=== PATIENT | female | born 2000 | race Caucasian/White ===

== ENCOUNTER 2020-09-16 12:21 | Emergency (ER) | payer OTHER, SELFPAY ==
[2020-09-16 13:05] VITALS: BP 114/76; PULSE 90; RESP 18; TEMP 36.6; O2SAT 98; BMI 21.1
--- NOTE | 2020-09-16 13:18 | CT_ITS ---
EXAMINATION: CT ABDOMEN AND PELVIS WITHOUT CONTRAST CLINICAL INFORMATION: Abdominal pain after IUD placement. Concern for perforation. COMPARISON: None TECHNIQUE: Multidetector volumetric imaging was performed from the superior aspect of the liver through the pubic symphysis. Sagittal and coronal reformatted images were obtained on the technologist's workstation. This CT examination was performed using dose optimization techniques as appropriate, variously including the following: *Automated exposure control *Adjustment of mA and/or kV according to patient size (this includes techniques or standardized protocols for targeted exams where dose is matched to indication/reason for exam; i.e. extremities or head) *Use of iterative reconstruction technique DLP: 380 mGy-cm FINDINGS: LUNG BASES: The visualized lung bases are unremarkable. LIVER, GALLBLADDER, AND BILIARY TREE: The liver is normal in size, shape, and attenuation. No focal hepatic lesion or biliary ductal dilatation is present. The gallbladder is unremarkable with no evidence of radiopaque gallstones, gallbladder wall thickening, or obvious pericholecystic inflammatory changes. PANCREAS: Unremarkable. SPLEEN: Unremarkable. ADRENAL GLANDS: Unremarkable. KIDNEYS AND URETERS: The kidneys are normal in size, shape, and attenuation. No hydronephrosis, hydroureter, or calculi seen. No perinephric stranding. BLADDER: Unremarkable. GASTROINTESTINAL TRACT: The small and large bowel are unremarkable. The appendix is unremarkable. ABDOMINAL WALL: No significant hernia is appreciated. LYMPH NODES: Normal. VASCULAR: Unremarkable. PELVIC VISCERA: Anteverted uterus. IUD in place in typical position. No adnexal mass. There is no free air identified. OSSEOUS STRUCTURES: Scoliotic curvature of the spine. CT/CT abdomen pelvis wo con IMPRESSION: IUD in place in the uterus in typical positioning. No evidence of perforation. No acute finding of the abdomen or pelvis.
--- NOTE | 2020-09-16 13:28 | ED.ABDPAIN ---
HPI - Abdominal Pain General Chief Complaint: Abdominal Pain Stated Complaint: abd pain Time Seen by Provider: 09/16/20 13:10 Source: patient Mode of arrival: ambulatory Limitations: no limitations History of Present Illness HPI narrative: 19 y/o female presenting with acute onset of abdominal pain after IUD placement at 9am today. She states she had immediate pain and nausea. She was given water and discharged home. She continued to have severe pain and had increase in vaginal bleeding. She took ibuprofen and naproxen with worsening pain and bleeding. She states the pain started in her uterus and now has migrated up to her RUQ. She has had no vomiting, diarrhea, fever, or vaginal discharge. MD elicited complaint: abdominal pain Related Data Previous Rx's Medication Instructions Recorded hydrocodone-acetaminophen [[place]] 1 tab PO Q8H PRN #5 tab 09/16/20 ondansetron HCl [Zofran] 4 mg PO Q8H PRN #10 tab 09/16/20 Allergies Allergy/AdvReac Type Severity Reaction Status Date / Time nut - unspecified [nut] Allergy Unknown UNKNOWN Unverified 07/21/20 16:47 FRUIT Allergy Unknown UNKNOWN Uncoded 07/21/20 16:47 fruits Allergy Unknown hives Uncoded 07/29/17 00:00 Review of Systems Review of Systems Constitutional: No Fever, No Chills ENT/Mouth: No sore throat, No Rhinorrhea, No Swallowing Difficulty Eyes: No Eye Pain, No Swelling, No Redness Cardiovascular: No Chest Pain, No SOB, No Orthopnea, No Edema Respiratory: No Cough, No Sputum, No Wheezing, No dyspnea Gastrointestinal: + Nausea, No Vomiting, No Diarrhea, + abdominal Pain, No Hematochezia, No Melena Genitourinary: No Dysuria, No Urinary Frequency, No Hematuria, +vaginal bleeding Musculoskeletal: No joint pain, No Myalgias Skin: No Skin Lesions, No rash Neuro: + Headache Psych: + Anxiety/Panic, No Depression Physical Exam Vital Signs: Vital Signs: Last Vital Signs Temp 98 F 09/16/20 14:00 Pulse 90 09/16/20 14:00 Resp 18 09/16/20 14:00 BP 112/64 09/16/20 14:00 Pulse Ox 98 09/16/20 14:00 Body Mass Index 21.1 Appearance: Alert. Oriented X3. Appears in pain Eyes: Pupils equal, round and reactive to light. ENT: Pharynx normal. Neck: Normal inspection. Neck supple. CVS: Normal heart rate and rhythm. Pulses normal. Respiratory: No respiratory distress. Breath sounds normal. Abdomen: Soft and nontender. +BS x4 Skin: Skin warm and dry. Normal skin color. Normal skin turgor. No rashes. Extremities: No lower extremity edema. Neuro: Oriented X 3. No motor deficit. No sensory deficit. Course Course Course Narrative: 19 y/o female here with severe pain s/p IUD placement. Need to r/o perforation - will get CT scan. Antiemetics and pain meds ordered. Reevaluation(s) Reevaluation #1: CT scan showed IUD in adequate position within the uterus. No acute abdnomalities. On re-evaluation patient's pain is improving. She is stable for discharge home. She will f/u with her Doctor on Saturday. MDM - Abdominal Pain Lab Data Result diagrams: 09/16/20 14:23 09/16/20 14:23 Labs: Lab Results 09/16/20 09/16/20 09/16/20 Range/Units 14:23 14:23 14:23 WBC 9.3 (4.8-10.8) X10*3/uL RBC 4.72 (4.20-5.50) X10*6/uL Hgb 14.8 (12.0-16.0) g/dl Hct 44.0 (37-47) % MCV 93.2 (80-98) fL MCH 31.4 (27.0-33.0) pg MCHC 33.6 (31.0-35.0) g/dl RDW 11.4 (11.0-16.0) % Plt Count 187 (160-400) X10*3/uL MPV Not Reportable Immature Gran % (Auto) 0.2 (0.0-0.4) % Neut % (Auto) 84.7 H (45-73) % Lymph % (Auto) 11.0 L (20-40) % [place] % (Auto) 3.5 (2-11) % Eos % (Auto) 0.3 (0-4) % Baso % (Auto) 0.3 (0-2) % Lymph # (Auto) 1.0 L (1.2-4.9) X10*3/uL [place] # (Auto) 0.3 (0.1-1.2) X10*3/uL Eos # (Auto) 0.0 (0.0-0.4) X10*3/uL Baso # (Auto) 0.0 (0.0-0.2) X10*3/uL Abs Immat Gran (auto) 0.02 (0.00-0.03) X10*3/uL Absolute Neuts (auto) 7.9 (2.0-8.3) X10*3/uL Absolute Nucleated RBC 0.000 (0.0-0.012) X10*3/uL Nucleated RBC % (auto) 0.0 (0.0-0.2) /100WBC Sodium 136 (135-145) mmol/L Potassium 4.8 (3.3-5.1) mmol/l Chloride 102 (96-108) mmol/L Carbon Dioxide 25 (22-29) mmol/L Anion Gap 14 (12-20) BUN 9 (9-16) mg/dL Creatinine 0.77 (0.5-1.4) mg/dL Estim Creat Clear Calc 100.6 Estimated GFR > 60 Random Glucose 94 (60-115) mg/dL Calcium 9.4 (8.4-10.2) mg/dL Magnesium 2.4 (1.6-2.6) mg/dL Total Bilirubin 0.4 (0.0-1.0) mg/dL Direct Bilirubin 0.2 (0.0-0.5) mg/dL AST 20 (5-31) U/L ALT 11 (0-31) U/L Alkaline Phosphatase 66 (39-117) U/L Total Protein 7.8 (6.5-8.0) g/dL Albumin 4.6 (3.5-5.0) g/dL Lipase 7 L (8-78) U/L Beta HCG, Quant < 2 mIU/mL Urine Color YELLOW Urine Appearance HAZY Urine pH 6.0 (5.0-8.0) Ur Specific [place] 1.025 (1.005-1.025) Urine Protein NEG (NEG-TRACE) MG/DL Urine Glucose (UA) NEG (NEG) MG/DL Urine Ketones NEG (NEG) MG/DL Urine Blood 2+ H (NEG) Urine Nitrite NEG (NEG) Ur Leukocyte Esterase TRACE H (NEG) Urine RBC 5-9 H (0) /HPF Urine WBC 1-4 (0-4) /HPF Ur Squamous Epith Cells TRACE /LPF Urine Bacteria NONE /LPF Urine Mucus 2+ /LPF Urine Test NEGATIVE (NEGATIVE) Critical Care Time Critical Care Time Critical Care Time: No Discharge Plan Discharge Clinical Impression: IUD complication Qualifiers: Device complication type: unspecified Encounter type: initial encounter Qualified Code(s): T83.9XXA - Unspecified complication of genitourinary prosthetic device, implant and graft, initial encounter Patient Disposition: Home, Self-Care Instructions: Normal Exam (ED) Additional Instructions: Your CT scan today showed IUD was in the correct position within your uterus. Expect to have some cramping and bleeding for the next 24-48 hours. Follow up with your doctor on Saturday. If you have worsening pain call 911 or come back to the ER for further evaluation. Prescriptions: New ondansetron HCl [Zofran] 4 mg tablet 4 mg PO Q8H PRN (Reason: nausea and vomiting) Qty: 10 RF: 0 hydrocodone-acetaminophen [[place]] 5-325 mg tablet 1 tab PO Q8H PRN (Reason: pain) Qty: 5 RF: 0 PMFSH Past Medical History Attestation statement: The following information was validated with the patient. Social History Social History Alcohol intake: current Alcohol intake frequency: holidays/special occasions only Smoking Status: Never smoker Advance Directives: Yes Advance Directives Information Provided: No Advance Directives on File: No
[2020-09-16 14:00] VITALS: BP 112/64; PULSE 90; RESP 18; TEMP 36.6; O2SAT 98
[2020-09-16] MEDS: oxyCODONE HCl Immed Release 5 MG TABLET PO (14:14)
[2020-09-16 14:31] LABS: MANUAL DIFF FLAG NO
[2020-09-16 14:34] LABS: Basophils Percent Auto 0.3 % (0-2); Eosinophils Percent Auto 0.3 % (0-4); Hemoglobin 14.8 g/dl (12.0-16.0); Imm Gran Abs Auto 0.02 X10*3/uL (0.00-0.03); Imm Gran Pct Auto 0.2 % (0.0-0.4); Mean Corpuscular HGB Conc 33.6 g/dl (31.0-35.0); Mean Corpuscular Hemoglobin 31.4 pg (27.0-33.0); Mean Corpuscular Volume 93.2 fL (80-98); Monocytes Absolute Auto 0.3 X10*3/uL (0.1-1.2); Monocytes Percent Auto 3.5 % (2-11); Neutrophils Absolute Auto 7.9 X10*3/uL (2.0-8.3); Neutrophils Percent Auto 84.7 % (45-73); Platelet Count 187 X10*3/uL (160-400); Red Blood Count 4.72 X10*6/uL (4.20-5.50); Red Cell Distribution Width 11.4 % (11.0-16.0); White Blood Count 9.3 X10*3/uL (4.8-10.8)
[2020-09-16 14:35] LABS: Glucose Urine UA NEG (NEG); Leukocyte Esterase Urine TRACE (NEG); Nitrite Urine NEG (NEG); Specific Gravity - Urine 1.025 (1.005-1.025); Urine Blood 2+ (NEG); Urine Ketones NEG (NEG); Urine Protein NEG (NEG-TRACE)
[2020-09-16 14:37] LABS: Appearance Urine HAZY; Color Urine YELLOW
[2020-09-16 14:38] LABS: UPreg QC Valid YES; Urine Pregnancy NEGATIVE (NEGATIVE)
[2020-09-16 14:45] LABS: Squamous Epithelial Cell Urine TRACE /LPF
[2020-09-16 14:46] LABS: Mucus Urine 2+ /LPF
[2020-09-16 14:58] LABS: Alanine Aminotransferase 11 U/L (0-31); Albumin Level 4.6 g/dL (3.5-5.0); Alkaline Phosphatase 66 U/L (39-117); Anion Gap 14 (12-20); Aspartate Amino Transferase 20 U/L (5-31); Bilirubin Direct 0.2 mg/dL (0.0-0.5); Bilirubin Total 0.4 mg/dL (0.0-1.0); Blood Urea Nitrogen 9 mg/dL (9-16); Calcium 9.4 mg/dL (8.4-10.2); Carbon Dioxide 25 mmol/L (22-29); Chloride 102 mmol/L (96-108); Creatinine Clr Calc Pharmacy 100.6; Estimated Glomerular Filt Rate > 60; Glucose Random 94 mg/dL (60-115); Lipase 7 U/L (8-78); Magnesium 2.4 mg/dL (1.6-2.6); Potassium 4.8 mmol/l (3.3-5.1); Sodium 136 mmol/L (135-145); Total Protein 7.8 g/dL (6.5-8.0)
[2020-09-16 15:01] LABS: HCG Quantitative < 2 mIU/mL
== END 2020-09-16 15:40 | disposition home or self-care (01) ==
PROVIDERS: Physician Assistant; Emergency Provider Emergency Medicine
DX: R10.2 Pelvic and perineal pain (principal); T83.9XXA Unspecified complication of genitourinary prosthetic device, implant and graft, initial encounter; Y76.2 Prosthetic and other implants, materials and accessory obstetric and gynecological devices associated with adverse incidents; Y92.9 Unspecified place or not applicable; Z79.899 Other long term (current) drug therapy
CPT/HCPCS: 36415; 74176; 80048; 80076; 81001; 81025; 83690; 83735; 84702; 85025; 87086; 87147; 99284

== ENCOUNTER 2022-01-18 21:38 | Emergency (ER) | payer OTHER, SELFPAY ==
[2022-01-18 21:41] VITALS: BP 125/77; PULSE 100; RESP 18; TEMP 36.7; O2SAT 100; BMI 20.5
== END 2022-01-19 00:35 | disposition left against medical advice (07) ==
PROVIDERS: Emergency Provider Emergency Medicine
DX: S01.111A Laceration without foreign body of right eyelid and periocular area, initial encounter (principal); W22.8XXA Striking against or struck by other objects, initial encounter; Y93.89 Activity, other specified; Y92.810 Car as the place of occurrence of the external cause; Y99.9 Unspecified external cause status
CPT/HCPCS: 99281; 99282

== ENCOUNTER 2022-03-18 18:51 | Emergency (ER) | payer OTHER, SELFPAY ==
[2022-03-18 19:05] VITALS: BP 133/66; PULSE 85; RESP 18; TEMP 37.4; O2SAT 98; BMI 21.9
[2022-03-18 19:39] LABS: IDNOW Serial# 16C4AD1C; Influenza A Positive (Negative); Influenza B2 Negative (Negative)
[2022-03-18 19:41] LABS: COVID-19 Test Negative (Negative)
== END 2022-03-18 23:12 | disposition left against medical advice (07) ==
PROVIDERS: Emergency Provider Emergency Medicine; PCP Internal Medicine
DX: R50.9 Fever, unspecified (principal); Z20.822 Contact with and (suspected) exposure to COVID-19
CPT/HCPCS: 87502; 87635; 99283

== ENCOUNTER 2022-05-14 09:52 | Outpatient (REF) | payer OTHER, SELFPAY ==
--- NOTE | ~2022-05-14 | XR_ITS ---
EXAMINATION: XR CHEST CLINICAL INFORMATION: Allergic rhinitis. COMPARISON: Chest x-ray 04/13/2019 TECHNIQUE: 2 views of the chest were obtained. FINDINGS: No significant abnormality is noted involving the heart, lungs, mediastinum, bony thorax or soft tissues. XR/XR chest 2V IMPRESSION: Unremarkable examination.
--- NOTE | 2022-05-14 10:01 | ECG_ITS ---
Test Reason : CHEST PAIN Blood Pressure : / mmHG Vent. Rate : 062 BPM Atrial Rate : 062 BPM P-R Int : 120 ms QRS Dur : 084 ms QT Int : 396 ms P-R-T Axes : 017 059 001 degrees QTc Int : 401 ms Normal sinus rhythm Normal ECG When compared with ECG of 13-APR-2019 07:16, No significant change was found Referred By: Jenna Matos Electronically Signed By:KATHERIN JOLLEY MD
[2022-05-14 10:49] LABS: Basophils Absolute Auto 0.1 X10*3/uL (0.0-0.2); Basophils Percent Auto 0.8 % (0-2); Eosinophils Absolute Auto 0.2 X10*3/uL (0.0-0.4); Eosinophils Percent Auto 3.7 % (0-4); Hematocrit 43.7 % (37.0-47.0); Hemoglobin 14.8 g/dl (12.0-16.0); Imm Gran Abs Auto 0.02 X10*3/uL (0.00-0.03); Imm Gran Pct Auto 0.3 % (0.0-0.4); Lymphocytes Absolute Auto 1.4 X10*3/uL (1.2-4.9); Lymphocytes Percent Auto 20.8 % (20-40); MANUAL DIFF FLAG SCAN; Mean Corpuscular HGB Conc 33.9 g/dl (31.0-35.0); Mean Corpuscular Hemoglobin 31.7 pg (27.0-33.0); Mean Corpuscular Volume 93.6 fL (80.0-98.0); Mean Platelet Volume 14.3 fL (9.4-12.3); Monocytes Absolute Auto 0.5 X10*3/uL (0.1-1.2); Monocytes Percent Auto 7.2 % (2-11); Neutrophils Absolute Auto 4.4 x10*3/uL (2.0-8.3); Neutrophils Percent Auto 67.2 % (45-73); PLT CLUMP 1; Red Blood Count 4.67 X10*6/uL (4.20-5.50); Red Cell Distribution Width 11.8 % (11.0-16.0); SCAN SMEAR FLAG 1
[2022-05-14 11:11] LABS: Alanine Aminotransferase 15 U/L (0-31); Albumin Level 4.7 g/dL (3.5-5.0); Alkaline Phosphatase 68 U/L (39-117); Anion Gap 11 (12-20); Aspartate Amino Transferase 17 U/L (5-31); Bilirubin Total 0.6 mg/dL (0.0-1.0); Blood Urea Nitrogen 12 mg/dL (9-16); Calcium 9.6 mg/dL (8.4-10.2); Carbon Dioxide 24 mmol/L (22-29); Chloride 105 mmol/L (96-108); Cholesterol 186 mg/dL; Estimated Glomerular Filt Rate > 60; Glucose Random 87 mg/dL (60-115); HDL Cholesterol 73 mg/dL; LDL Cholesterol Calculated 96 mg/dl; Sodium 136 mmol/L (135-145); Total Protein 7.8 g/dL (6.5-8.0); Triglycerides 88 mg/dL
[2022-05-14 11:21] LABS: Free T4 (Free Thyroxine) 0.98 ng/dL (0.71-1.85); Thyroid Stimulating Hormone 0.77 uIU/mL (0.32-4.0); Vitamin D 25-OH Total 28.9 ng/mL (>30)
[2022-05-14 11:22] LABS: White Blood Count 6.5 X10*3/uL (4.8-10.8)
[2022-05-14 11:23] LABS: Platelet Count 134 X10*3/uL (160-400); SLIDE REVIEW VERIFIED
[2022-05-14 12:30] LABS: Folate 9.9 ng/mL (> or = 4.0); Vitamin B12 288 pg/mL (200-900)
== END 2022-05-14 09:53 | disposition home or self-care (01) ==
LOC: HO.XRAY 09:52
PROVIDERS: PCP Internal Medicine; Visit Provider Internal Medicine
DX: J30.9 Allergic rhinitis, unspecified (principal); E78.00 Pure hypercholesterolemia, unspecified
CPT/HCPCS: 36415; 71046; 80053; 80061; 82306; 82607; 82746; 84439; 84443; 85025; 93005

== ENCOUNTER 2023-06-27 13:55 | Outpatient (AMB) | payer OTHER, SELFPAY ==
[2023-06-27 13:57] VITALS: BP 114/80; BMI 22.8
--- NOTE | 2023-06-27 13:57 | A.OFFPC_ITS ---
Vital Signs 06/27/23 13:57 Height 5 ft 4 in Weight 133 lb BMI 22.8 BP 114/80 Blood Pressure Location Lt brachial Position Sitting Intake Visit Reasons: Discuss Handicap Placard Intake Note: Patient here to talk about leg/ handicap placard Compressor Service Technician Required: No Accompanied by: Self / Same As Patient Allergies nut - unspecified [nut] Allergy (Unknown, Verified 06/27/23 14:06) UNKNOWN FRUIT Allergy (Unknown, Uncoded 06/27/23 14:06) UNKNOWN fruits Allergy (Unknown, Uncoded 06/27/23 14:06) hives Medication List - Last Reconciled 06/27/23 by QUE Pond No Known Home Meds Tobacco use date assessed: 11/15/22 Dental Screening Dental Screen Date: 06/27/23 Did you have a dental visit in the last 12 months?: Yes Did you have a dental problem in the last 6 months where you did not have access to dental care?: No Was dental information given to patient?: Patient has dentist HPI Discuss Handicap Placard HPI Details Patient is a 22-year-old female who presents today to discuss handicap placard. Patient of Dr. Matos. Patient underwent right knee surgery due to ACL and meniscus repair 04/08/[address] Yin at [facility]. Patient reports ongoing right knee pain, she is currently in physical therapy for the next 6 months, patient reports that her orthopedic told her if she will not have improvement in pain in the next 3 weeks they will have to proceed with 2nd surgery on the right knee. Patient wears right knee brace. Reports pain and she takes naproxen for pain with very minimal improvement. Reports pain with ambulation. Reports right leg numbness slightly below the knee area. No surgical notes available from orthopedic provider, preop notes available for review, will request operative record. Will provide patient with handicap placard for 3 months. Patient agreed with the plan. [facility] Medical History (Updated 06/27/23 @ 17:42 by QUE Pond) Allergic rhinitis Asthma Attention deficit disorder COVID-19 virus infection Oppositional defiant disorder PUD (peptic ulcer disease) Recurrent major depression Surgical History (Updated 06/27/23 @ 17:42 by QUE Pond) H/O neck surgery H/O tubal ligation History of repair of ACL History of tonsillectomy Family History Maternal Grandmother Myocardial infarct Breast cancer Social History Household Members: Family Housing: Apartment Alcohol intake: current Alcohol intake frequency: holidays/special occasions only Patient Tobacco Use Status: Never used Tobacco Years Smoked: marijuana e-Cigarette/Vaping Use: Never Used Second Hand Smoke Exposure: No Substance Use Type: Marijuana service: No Current occupational status: unemployed and student Cognitive needs: No Hearing needs: No Vision needs: No Questionnaire Thrive Questionnaire Date Thrive assessed: 11/15/22 AMBROSIO-7 AMB Questionnaire AMBROSIO-7 Date AMBROISO - 7 assessed: 11/15/22 Source: Developed by Drs. Jaswatn Alfaro, Jessica Cohen, Murphy Aggarwal and colleagues, with an educational pablo from [employer]. Review of Systems Const Denies body aches, Denies chills, Denies fever(s) and Denies headache(s) Eyes Denies change in vision ENT Denies dizziness, Denies otalgia, Denies headache(s), Denies nasal discharge, Denies sinus pain and Denies sore throat Card Denies chest pain, Denies edema, Denies lightheadedness and Denies dyspnea Resp Denies cough, Denies dyspnea and Denies wheezing GI Denies abdominal pain Denies dysuria Musc Denies myalgias, Reports arthralgias, Reports numbness and Denies tingling Skin/Breast Denies rash Neuro Denies dizziness, Denies headache(s), Reports numbness and Denies tingling Aller/Immun Denies wheezing Physical exam (Primary Care) Vital Signs: Last Vital Signs BP 114/80 06/27/23 13:57 BMI result Body Mass Index 22.8 Tobacco/Smoking Status: Tobacco use Status Tobacco use date assessed 11/15/22 06/27/23 13:58 Patient Tobacco Use Status Never used Tobacco 06/27/23 13:58 e-Cigarette/Vaping Use Never Used 06/27/23 13:58 Thrive Assessment: Date of Thrive Assessment Date Thrive assessed 11/15/22 06/27/23 13:58 Const General: cooperative and no acute distress Orientation/consciousness: patient oriented x3 HENMT Head: Yes normocephalic and Yes atraumatic Mouth: oropharynx normal and moist mucous membranes Throat: Yes posterior oropharynx normal Eyes General: appearance normal, both eyes and all related structures Neck Neck: Yes normal visual inspection, Yes full ROM and Yes no lymphadenopathy Resp Effort & Inspection: normal respiratory effort and able to speak in complete sentences Auscultation: clear to auscultation bilaterally, no crackles, no rales, no rhonchi and no wheezes Cardio Rate: regular rate Rhythm: regular rhythm Heart sounds: S1 normal heart sound present and S2 normal heart sound present GI Auscultation: normal bowel sounds Skin Other: Right knee with healed surgical scars Neuro Other: Patient limping General: patient oriented x3 Extrem Other: Right leg brace General: Yes full ROM and No edema Right lower extremity: knee Details: tenderness (Lateral and medial aspect) and abnormal ROM (Pain with range of motion); no swelling, no ecchymosis, no crepit us, no deformity and no unusual warmth Assessment and Plan Assessment & Plan (1) Right knee pain: Code(s): M25.561 - Pain in right knee Plan: Patient is currently in physical therapy Continue to follow-up with [facility] orthopedic as scheduled Patient wears right lower extremity brace Continue naproxen as needed for pain Will provide patient with handicap placard for 3 months. Coding Level of Care Code Est Pt Level 3 (58534) Diagnoses Right knee pain M25.561
== END 2023-06-27 14:23 | disposition home or self-care (01) ==
PROVIDERS: PCP Nurse Practitioner Family; Visit Provider Nurse Practitioner Family
DX: M25.561 Pain in right knee (principal)
CPT/HCPCS: 99213

== ENCOUNTER 2023-07-02 11:12 | Outpatient (REF) | payer OTHER, SELFPAY ==
[2023-07-02 11:28] LABS: MANUAL DIFF FLAG NO
[2023-07-02 12:03] LABS: Basophils Absolute Auto 0.1 X10*3/uL (0.0-0.2); Basophils Percent Auto 1.1 % (0-2); Eosinophils Absolute Auto 0.2 X10*3/uL (0.0-0.4); Eosinophils Percent Auto 3.4 % (0-4); Hematocrit 43.9 % (37.0-47.0); Hemoglobin 14.8 g/dl (12.0-16.0); Imm Gran Abs Auto 0.01 X10*3/uL (0.00-0.03); Imm Gran Pct Auto 0.2 % (0.0-0.4); Lymphocytes Absolute Auto 1.5 X10*3/uL (1.2-4.9); Lymphocytes Percent Auto 27.8 % (20-40); Mean Corpuscular HGB Conc 33.7 g/dl (31.0-35.0); Mean Corpuscular Volume 94.8 fL (80.0-98.0); Mean Platelet Volume 14.2 fL (9.4-12.3); Monocytes Absolute Auto 0.5 X10*3/uL (0.1-1.2); Monocytes Percent Auto 8.6 % (2-11); Neutrophils Absolute Auto 3.1 x10*3/uL (2.0-8.3); Neutrophils Percent Auto 58.9 % (45-73); Platelet Count 158 X10*3/uL (160-400); Red Blood Count 4.63 X10*6/uL (4.20-5.50); Red Cell Distribution Width 11.7 % (11.0-16.0); White Blood Count 5.3 X10*3/uL (4.8-10.8)
[2023-07-02 12:25] LABS: Alanine Aminotransferase 9 U/L (0-31); Albumin Level 4.6 g/dL (3.5-5.0); Alkaline Phosphatase 69 U/L (39-117); Anion Gap 9 (12-20); Aspartate Amino Transferase 14 U/L (5-31); Bilirubin Total 0.4 mg/dL (0.0-1.0); Blood Urea Nitrogen 12 mg/dL (9-16); Calcium 9.6 mg/dL (8.4-10.2); Carbon Dioxide 26 mmol/L (22-29); Chloride 106 mmol/L (96-108); Estimated Glomerular Filt Rate > 60; Glucose Random 84 mg/dL (60-115); Potassium 3.9 mmol/L (3.3-5.1); Sodium 137 mmol/L (135-145)
[2023-07-02 12:43] LABS: TSH reflex Free T4 1.14 uIU/mL (0.32-4.0); Vitamin D 25-OH Total 37.6 ng/mL (>30)
[2023-07-02 12:50] LABS: Folate 6.7 ng/mL (> or = 4.0); Vitamin B12 309 pg/mL (200-900)
[2023-07-04 20:38] LABS: TS Negative Control Passed; TS Panel A 1; TS Panel B 0; TS Positive Control Passed; TSpotTB Negative (Negative)
== END 2023-07-02 11:13 | disposition home or self-care (01) ==
LOC: HO.LAB 11:12
PROVIDERS: PCP Nurse Practitioner Family; Visit Provider Nurse Practitioner Family
DX: Z00.00 Encounter for general adult medical examination without abnormal findings (principal); Z11.1 Encounter for screening for respiratory tuberculosis
CPT/HCPCS: 36415; 80053; 82306; 82607; 82746; 84443; 85025; 86481

== ENCOUNTER 2023-09-13 13:15 | Outpatient (AMB) | payer OTHER, SELFPAY ==
--- NOTE | 2023-09-13 13:18 | MHC.PC.OV ---
Vital Signs 09/13/23 13:20 Height 5 ft 4 in Weight 131 lb BMI 22.5 BP 110/70 Blood Pressure Location Lt brachial Position Sitting Pulse 91 Pulse Source Pulse Oximeter Pulse Oximetry (%) 100 Oxygen Delivery Method Room Air Intake Visit Reasons: ezcema Intake Note: Patient is here to follow up on ezcema. Cnc Supervisor Required: No Lokie Driver: Not Required per policy Accompanied by: Self / Same As Patient Allergies nut - unspecified [nut] Allergy (Unknown, Verified 09/13/23 13:29) UNKNOWN FRUIT Allergy (Unknown, Uncoded 09/13/23 13:29) UNKNOWN fruits Allergy (Unknown, Uncoded 09/13/23 13:29) hives Medication List - Last Reconciled 09/13/23 by QUE Pond No Known Home Meds Tobacco use date assessed: 09/13/23 Dental Screening Dental Screen Date: 09/13/23 Did you have a dental visit in the last 12 months?: Yes Did you have a dental problem in the last 6 months where you did not have access to dental care?: No Was dental information given to patient?: Patient has dentist HPI ezreid HPI Details Patient is a 22-year-old female who presents today for an office visit with eczema flareup for the past 1 and [address] months. Patient of Dr. Matos. Patient reports eczema for many years now and has flareup every 2-3 months. Reports eczema on her right wrist and face near her lip. Reports using hydrocortisone cream and Vaseline with very minimal improvement. Would like Dermatology referral. [facility] Medical History PUD (peptic ulcer disease) Recurrent major depression Attention deficit disorder Oppositional defiant disorder Allergic rhinitis Asthma COVID-19 virus infection Surgical History History of repair of ACL H/O tubal ligation History of tonsillectomy H/O neck surgery Family History Maternal Grandmother Myocardial infarct Breast cancer Social History Household Members: Family Housing: Apartment Alcohol intake: current Alcohol intake frequency: holidays/special occasions only Patient Tobacco Use Status: Never used Tobacco Years Smoked: marijuana e-Cigarette/Vaping Use: Never Used Second Hand Smoke Exposure: No Substance Use Type: Marijuana service: No Current occupational status: unemployed and student Cognitive needs: No Hearing needs: No Vision needs: No Questionnaire Thrive Questionnaire Date Thrive assessed: 11/15/22 AMBROSIO-7 AMB Questionnaire AMBROSIO-7 Date AMBROSIO - 7 assessed: 11/15/22 Source: Developed by Drs. Jaswant Alfaro, Jessica Cohen, Murphy gAgarwal and colleagues, with an educational pablo from [employer]. Review of Systems Const Denies body aches, Denies chills, Denies fever(s) and Denies headache(s) ENT Denies dizziness, Denies otalgia, Denies headache(s), Denies nasal discharge, Denies sinus pain and Denies sore throat Card Denies chest pain, Denies lightheadedness and Denies dyspnea Resp Denies cough, Denies dyspnea and Denies wheezing GI Denies abdominal pain Denies dysuria Musc Denies myalgias Skin/Breast Reports rash Neuro Denies dizziness and Denies headache(s) Aller/Immun Denies wheezing Physical exam (Primary Care) Vital Signs: Last Vital Signs Pulse 91 09/13/23 13:20 BP 110/70 09/13/23 13:20 Pulse Ox 100 09/13/23 13:20 Oxygen Delivery Method Room Air 09/13/23 13:20 BMI result Body Mass Index 22.5 Tobacco/Smoking Status: Tobacco use Status Tobacco use date assessed 09/13/23 09/13/23 13:25 Patient Tobacco Use Status Never used Tobacco 09/13/23 13:25 e-Cigarette/Vaping Use Never Used 09/13/23 13:25 Thrive Assessment: Date of Thrive Assessment Date Thrive assessed 11/15/22 09/13/23 13:25 Const General: cooperative and no acute distress Orientation/consciousness: patient oriented x3 HENMT Head: Yes normocephalic and Yes atraumatic Throat: Yes posterior oropharynx normal Eyes General: appearance normal, both eyes and all related structures Neck Neck: Yes normal visual inspection and Yes full ROM Resp Effort & Inspection: normal respiratory effort and able to speak in complete sentences Auscultation: clear to auscultation bilaterally, no crackles, no rales, no rhonchi and no wheezes Cardio Rate: regular rate Rhythm: regular rhythm Heart sounds: S1 normal heart sound present and S2 normal heart sound present GI Auscultation: normal bowel sounds Skin Other: Right wrist large dry patch, no signs of infection noted Right 5th finger with dry patch, no signs of infection noted Right-sided face proximal to lip with small dry patch area, no signs of infection noted Neuro General: patient oriented x3 Gait exam (Neuro): Normal gait present Extrem General: Yes full ROM Assessment and Plan Assessment & Plan (1) Eczema: Code(s): L30.9 - Dermatitis, unspecified Plan: Continue using Vaseline on eczema Start triamcinolone cream daily for 14 days-do not use this cream on face, for face can continue using [id number] cortisone cream Dermatology referral Signs and symptoms reviewed when to notify provider Orders: Referrals Dermatology Referral L30.9 - Dermatitis, unspecified Medications: New triamcinolone acetonide 0.1% 1 appl topical DAILY 14 days 15 grams 0RF L30.9 - Dermatitis, unspecified Coding Level of Care Code Est Pt Level 3 (42873) Diagnoses Eczema L30.9
[2023-09-13 13:20] VITALS: BP 110/70; PULSE 91; O2SAT 100; BMI 22.5
== END 2023-09-13 13:39 | disposition home or self-care (01) ==
PROVIDERS: PCP Nurse Practitioner Family; Visit Provider Nurse Practitioner Family
DX: L30.9 Dermatitis, unspecified (principal)
CPT/HCPCS: 99213

== ENCOUNTER 2023-09-25 12:49 | Outpatient (AMB) | payer OTHER, SELFPAY ==
[2023-09-25 12:51] VITALS: BP 110/70; BMI 22.5
--- NOTE | 2023-09-25 12:51 | A.OFFPC_ITS ---
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: No Accompanied by: Self / Same As Patient Allergies nut - unspecified [nut] Allergy (Unknown, Verified 09/25/23 12:56) UNKNOWN FRUIT Allergy (Unknown, Uncoded 09/25/23 12:56) UNKNOWN fruits Allergy (Unknown, Uncoded 09/25/23 12:56) hives Medication List - Last Reconciled 09/25/23 by Anisha Chong MD sertraline 50 mg PO DAILY sertraline 100 mg PO DAILY triamcinolone acetonide 0.1% 1 appl topical DAILY 14 days Tobacco use date assessed: 09/13/23 Dental Screening Dental Screen Date: 09/25/23 Did you have a dental visit in the last 12 months?: Yes Did you have a dental problem in the last 6 months where you did not have access to dental care?: No Was dental information given to patient?: Patient has dentist HPI HPI Comments History of Present Illness Details This is a 22-year-old female with recurrent major depression and anxiety that comes today asking for a refill on sertraline. She has had sertraline 150 mg does not work for her. She said she has take 3-4 tablets per day and does not do anything for her. She used to take Adderall 50 mg once a day and admits to by desi on the streets still. I will refer her to counseling for this matter. She also has eczema that has improved with steroid cream and needs a refill. No chest pain or shortness of breath. [facility] Medical History PUD (peptic ulcer disease) Recurrent major depression Attention deficit disorder Oppositional defiant disorder Allergic rhinitis Asthma COVID-19 virus infection Surgical History History of repair of ACL H/O tubal ligation History of tonsillectomy H/O neck surgery Family History Maternal Grandmother Myocardial infarct Breast cancer Household Members: Family Housing: Apartment Alcohol intake: current Alcohol intake frequency: holidays/special occasions only Patient Tobacco Use Status: Never used Tobacco Years Smoked: marijuana e-Cigarette/Vaping Use: Never Used Second Hand Smoke Exposure: No Substance Use Type: Marijuana service: No Current occupational status: unemployed and student Cognitive needs: No Hearing needs: No Vision needs: No Questionnaire Thrive Questionnaire Date Thrive assessed: 11/15/22 AMBROSIO-7 AMB Questionnaire AMBROSIO-7 Date AMBROSIO - 7 assessed: 11/15/22 Source: Developed by Drs. Jaswant Alfaro, Jessica Cohen, Murphy Aggarwal and colleagues, with an educational pablo from [employer]. Review of Systems Const All systems reviewed & are unremarkable except as noted in HPI and below Eyes Reports no additional complaints, Denies change in vision and Denies other visual disturbances Card Denies chest pain at rest, Denies chest pain with activity, Denies edema, Denies irregular heart rhythm, Denies claudication, Denies dyspnea, Denies dyspnea on exertion, Denies orthopnea, Denies paroxysmal nocturnal dyspnea and Denies slow heart rate Resp Denies cough, Denies dyspnea and Denies dyspnea on exertion GI Denies abdominal pain, Denies change in bowel habits, Denies excessive flatus, Denies nausea and Denies vomiting Denies urinary incontinence, Denies urinary hesitancy and Denies urinary urgency Musc Denies abnormal gait, Denies atrophy, Denies deformity and Denies limited range of motion Skin/Breast Denies bleeding lesions, Denies changing lesions and Denies rash Neuro Denies abnormal gait, Denies behavioral changes and Denies lack of coordination Psych Denies behavioral changes Physical exam (Primary Care) Vital Signs: Last Vital Signs BP 110/70 09/25/23 12:51 BMI result Body Mass Index 22.5 Tobacco/Smoking Status: Tobacco use Status Tobacco use date assessed 09/13/23 09/25/23 12:56 Patient Tobacco Use Status Never used Tobacco 09/25/23 12:56 e-Cigarette/Vaping Use Never Used 09/25/23 12:56 Thrive Assessment: Date of Thrive Assessment Date Thrive assessed 11/15/22 09/25/23 12:56 Eyes General: appearance normal, both eyes and all related structures Eyelids: Yes eyelids normal Conjunctivae: conjunctivae normal Neck Neck: Yes normal visual inspection and Yes supple Resp Effort & Inspection: normal respiratory effort Auscultation: clear to auscultation bilaterally Cardio Jugular venous distension: no JVD Rate: regular rate Rhythm: regular rhythm Heart sounds: S1 normal heart sound present and S2 normal heart sound present Extrem General: Yes full ROM Office Procedures Flu Questionnaire Does the patient have a severe egg allergy?: No Immunizations flu vacc [id number] 6mos up(PF) 60 mcg(15 mcgx4)/0.5 mL IM syringe Performing Provider: Anisha Chong MD [facility] Documented (not given) by: MARGUERITE Banegas on 09/25/23 12:57 Reason Not Given: Patient Refused Assessment and Plan Assessment & Plan (1) Recurrent major depression: Comment: [facility] counselling Q 1 week Code(s): F33.9 - Major depressive disorder, recurrent, unspecified Plan: Continue sertraline 150 mg for now. Referred to Psychiatry. (2) Generalized anxiety disorder: Code(s): F41.1 - Generalized anxiety disorder Plan: Continue sertraline. Referred to Psychiatry. (3) Eczema: Code(s): L30.9 - Dermatitis, unspecified Plan: Continue steroid cream. With see dermatology in November. Orders: Orders Influenza [id number] Immunization Today Z23 - Encounter for immunization Referrals Counseling Referral F33.9 - Major depressive disorder, recurrent, unspecified, F41.1 - Generalized anxiety disorder Medications: New 2 sertraline 50 mg PO DAILY 90 tabs 0RF 90 days sertraline 100 mg PO DAILY 90 tabs 0RF 90 days Changed From triamcinolone acetonide 0.1% 1 appl topical DAILY 14 days 15 grams 0RF L30.9 - Dermatitis, unspecified To triamcinolone acetonide 0.1% 1 appl topical DAILY 30 grams 1RF 30 days L30.9 - Dermatitis, unspecified Coding Level of Care Code Est Pt Level 3 (25123) Diagnoses Recurrent major depression F33.9 Generalized anxiety disorder F41.1 Eczema L30.9 Time Spent (min) 19
== END 2023-09-25 13:08 | disposition home or self-care (01) ==
PROVIDERS: PCP Nurse Practitioner Family; Visit Provider Internal Medicine
DX: F33.9 Major depressive disorder, recurrent, unspecified (principal); F41.1 Generalized anxiety disorder; L30.9 Dermatitis, unspecified
CPT/HCPCS: 99213

== ENCOUNTER 2024-03-03 14:51 | Outpatient (AMB) | payer OTHER, SELFPAY ==
[2024-03-03 15:06] VITALS: BP 112/72; BMI 23.2
--- NOTE | 2024-03-03 15:06 | MHC.PC.OV ---
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 Accompanied by: Self / Same As Patient Allergies nut - unspecified [nut] Allergy (Unknown, Verified 03/03/24 15:08) UNKNOWN FRUIT Allergy (Unknown, Uncoded 09/25/23 12:56) UNKNOWN fruits Allergy (Unknown, Uncoded 09/25/23 12:56) hives Medication List - Last Reconciled 03/03/24 by Anisha Chong MD naproxen 500 mg PO BID sertraline 50 mg PO DAILY 90 days sertraline 100 mg PO DAILY 90 days Tobacco use date assessed: 03/03/24 Dental Screening Dental Screen Date: 03/03/24 Did you have a dental visit in the last 12 months?: Yes Did you have a dental problem in the last 6 months where you did not have access to dental care?: No Was dental information given to patient?: Patient has dentist HPI HPI Comments History of Present Illness Details This is a 23-year-old female with mild major depression and mild thrombocytopenia that comes for her physical exam. Depression has been follow by counselor in private practice. [facility] and [facility]ry. Was prescribed Adderall 50 mg once a day and Seroquel 50 mg twice a day with trazodone at bedtime to sleep. Now she buys medication in the streets were which I recommended not to do that. She also has a diagnosis of bipolar disorder and I will start her on Lamictal to see if this helps. Last Pap smear was at [facility] less than 2 years ago and was normal. [facility] Medical History PUD (peptic ulcer disease) Recurrent major depression Attention deficit disorder Oppositional defiant disorder Allergic rhinitis Asthma COVID-19 virus infection Surgical History History of repair of ACL H/O tubal ligation History of tonsillectomy H/O neck surgery Family History Maternal Grandmother Myocardial infarct Breast cancer Father No problems noted. Social History Household Members: Family Housing: Apartment Alcohol intake: current Alcohol intake frequency: holidays/special occasions only Patient Tobacco Use Status: Never used Tobacco Years Smoked: marijuana e-Cigarette/Vaping Use: Never Used Second Hand Smoke Exposure: No Substance Use Type: Marijuana service: No Current occupational status: unemployed and student Cognitive needs: No Hearing needs: No Vision needs: Yes Questionnaire PHQ-9 Over the last 2 weeks, how often have you been bothered by any of the following problems? 1. Little interest or pleasure in doing things: several days 2. Feeling down, depressed, or hopeless: not at all 3. Trouble falling or staying asleep, or sleeping too much: several days 4. Feeling tired or having little energy: several days 5. Poor appetite or overeating: nearly every day 6. Feeling bad about yourself - or that you are a failure or have let yourself or your family down: not at all 7. Trouble concentrating on things, such as reading the newspaper or watching television: several days 8. Moving or speaking so slowly that other people could have noticed. Or the opposite - being so fidgety or restless that you have been moving around a lot more than usual: not at all 9. Thoughts that you would be better off or of hurting yourself in some way: not at all Total score: 7 Depression Screening Interpretation: Positive Depression Screening Follow-up: Existing condition and Community Mental Health Worker F/U Depression Screening Done: Yes 69741 - PHQ-9 Billing: Yes Source: Developed by Drs. Jaswant Alfaro, Jessica Cohen, Murphy Aggarwal and colleagues, with an educational pablo from [employer]. Thrive Questionnaire Date Thrive assessed: 03/03/24 I am a: Patient What is your living situation today?: I have a steady place to live Within the past 12 months, did the food you bought not last and you didn't have the money to get more?: Never true Within the past 12 months, did you worry whether your food would run out before you got money to buy more?: Never true Do you have trouble paying for medicines?: No Do you have trouble getting transportation to medical appointments?: No Do you have trouble paying your heating and electricity bill?: No Do you have trouble taking care of your child, family member or friend?: No Do you have trouble with day-to-day activities such as bathing, preparing meals, shopping, managing finances, etc.?: No Are you currently unemployed and looking for a job?: No Are you interested in more education?: No Please select the resources that you would like help with: None Currently or been in a relationship where the following occur: no concerns reported THRIVE Score: 0 AUDIT C Alcohol Use Questionnaire (AUDIT-C) 1. How often do you have a drink containing alcohol?: Monthly or less 2. How many drinks containing alcohol do you have on a typical day when you are drinking?: 1 or 2 3. How often do you have six or more drinks on one occasion?: Never Total Score: 1 Score Reviewed/Action Taken: No AMBROSIO-7 AMB Questionnaire AMBROSIO-7 Date AMBROSIO - 7 assessed: 03/03/24 Feeling nervous, anxious, or on edge: 3 = Nearly every day Not being able to stop or control worryin = Not at all Worrying too much about different things: 1 = Several days Trouble relaxin = Not at all Being so restless that it is hard to sit still: 0 = Not at all Becoming easily annoyed or irritable: 2 = More than half the days Feeling afraid as if something awful might happen: 0 = Not at all Total AMBROSIO-7 score (0-4 normal; 5-9 mild; 10-14 moderate; 15-21 severe): 6 Source: Developed by Drs. Jaswant Alfaro, Jessica Cohen, Murphy Aggarwal and colleagues, with an educational pablo from [employer]. AMBROSIO-7 Assessment Billing ABMROSIO-7 Assessment Tool: AMBROSIO-7 Assessment 77334 Review of Systems Const All systems reviewed & are unremarkable except as noted in HPI and below Eyes Reports no additional complaints, Denies change in vision and Denies other visual disturbances Card Denies chest pain at rest, Denies chest pain with activity, Denies edema, Denies irregular heart rhythm, Denies claudication, Denies dyspnea, Denies dyspnea on exertion, Denies orthopnea, Denies paroxysmal nocturnal dyspnea and Denies slow heart rate Resp Denies cough, Denies dyspnea and Denies dyspnea on exertion GI Denies abdominal pain, Denies change in bowel habits, Denies excessive flatus, Denies nausea and Denies vomiting Denies urinary incontinence, Denies urinary hesitancy and Denies urinary urgency Musc Denies abnormal gait, Denies atrophy, Denies deformity and Denies limited range of motion Skin/Breast Denies bleeding lesions, Denies changing lesions and Denies rash Neuro Denies abnormal gait, Denies behavioral changes, Denies confusion and Denies lack of coordination Psych Denies behavioral changes and Denies confusion Physical exam (Primary Care) Vital Signs: Last Vital Signs BP 112/72 03/03/24 15:06 BMI result Body Mass Index 23.2 Tobacco/Smoking Status: Tobacco use Status Tobacco use date assessed 03/03/24 03/03/24 15:15 Patient Tobacco Use Status Never used Tobacco 03/03/24 15:15 e-Cigarette/Vaping Use Never Used 03/03/24 15:15 PHQ-9: PHQ-9 Score PHQ-9: Total score 7 03/03/24 15:15 Depression Screening Interpretation: Positive Depression Screening Follow-up: Existing condition and Community Mental Health Worker F/U Thrive Assessment: Date of Thrive Assessment Date Thrive assessed 03/03/24 03/03/24 15:15 Currently or been in a relationship where the following occur: no concerns reported Const General: No confusion Orientation/consciousness: patient oriented x3 and No confusion HENMT Head: Yes normal to inspection, Yes normocephalic and Yes atraumatic Ears: external ears normal Eyes General: appearance normal, both eyes and all related structures Eyelids: Yes eyelids normal Conjunctivae: conjunctivae normal Neck Neck: Yes normal visual inspection and Yes supple Resp Effort & Inspection: normal respiratory effort Auscultation: clear to auscultation bilaterally Cardio Jugular venous distension: no JVD Rate: regular rate Rhythm: regular rhythm Heart sounds: S1 normal heart sound present and S2 normal heart sound present GI Inspection: Yes normal to inspection Palpation (GI): Soft to palpation and nontender Auscultation: normal bowel sounds Skin General skin exam: no rashes or lesions noted Neuro General: patient oriented x3, no focal motor deficits and No confusion Extrem General: Yes full ROM Psych Appearance: grossly normal Assessment and Plan Assessment & Plan (1) Adult general medical exam: Code(s): Z00.00 - Encounter for general adult medical examination without abnormal findings Plan: Repeat in a year. (2) Thrombocytopenia: Code(s): D69.6 - Thrombocytopenia, unspecified Plan: CBC ordered. (3) Recurrent major depression: Comment: [facility]selling Q 1 week Code(s): F33.9 - Major depressive disorder, recurrent, unspecified Plan: Continue counseling. Orders: Orders Lipid Panel Today Z00.00 - Encounter for general adult medical examination without abnormal findings Comprehensive [place]. Panel Fast Today Z00.00 - Encounter for general adult medical examination without abnormal findings Complete Blood Count Auto Diff Today D69.6 - Thrombocytopenia, unspecified Medications: New docusate calcium 240 mg PO BEDTIME 90 days PRN 90 caps 0RF constipation lamotrigine 25 mg PO DAILY 14 days 14 tabs 0RF Discontinued sertraline Discontinued Reason: Patient Completed Course 50 mg PO DAILY 90 days 90 tabs 0RF sertraline Discontinued Reason: Patient Completed Course 100 mg PO DAILY 90 days 90 tabs 0RF Coding Level of Care Code Est Pt Prev Care 18-39y(78236) Diagnoses Adult general medical exam Z00.00 Thrombocytopenia D69.6 Recurrent major depression F33.9 Additional Codes AMBROSIO-7 Assessment Billing - AMBROSIO-7 Assessment Tool: AMBROSIO-7 Assessment 10713 ([id number]) Time Spent (min) 30
== END 2024-03-03 15:42 | disposition home or self-care (01) ==
PROVIDERS: PCP Internal Medicine; Visit Provider Internal Medicine
DX: Z00.00 Encounter for general adult medical examination without abnormal findings (principal); D69.6 Thrombocytopenia, unspecified; F33.9 Major depressive disorder, recurrent, unspecified
CPT/HCPCS: 99395

== ENCOUNTER 2024-07-02 12:27 | Outpatient (REF) | payer OTHER, SELFPAY ==
[2024-07-04 22:08] LABS: TS Negative Control Passed; TS Panel A 1; TS Panel B 1; TS Positive Control Passed; TSpotTB Negative (Negative)
== END 2024-07-02 12:28 | disposition home or self-care (01) ==
LOC: HO.LAB 12:27
PROVIDERS: PCP Internal Medicine; Visit Provider Internal Medicine
DX: Z11.1 Encounter for screening for respiratory tuberculosis (principal)
CPT/HCPCS: 36415; 86481

== ENCOUNTER 2025-06-30 14:55 | Outpatient (AMB) | payer OTHER, SELFPAY ==
--- NOTE | 2025-06-30 15:42 | AM.OFFWIN_ITS ---
Intake Vital Signs 06/30/25 15:44 Height 5 ft 5 in Weight 161 lb BMI 26.8 BP 90/60 Blood Pressure Location Lt brachial Position Sitting Respiration 15 Pulse 78 Pulse Source Pulse Oximeter Temp 98.0 F Temp Source Oral Pulse Oximetry (%) 99 Oxygen Delivery Method Room Air Intake Visit Reasons: headache, sore throat, back pain Intake Note: Pt is here today c/o h/a and sorethroat x1wk Patient Tobacco Use Status: Never used Tobacco Allergies nut - unspecified (nut) Allergy (Unknown, Verified 06/30/25 15:44) UNKNOWN FRUIT Allergy (Unknown, Uncoded 06/30/25 15:44) UNKNOWN fruits Allergy (Unknown, Uncoded 06/30/25 15:44) hives HPI HPI Comments History of Present Illness Details History of Present Illness - The patient is a 24-year-old female pr esenting with a severe headache and associated symptoms. - The headache began on Saturday and has b een persistent, described as the worst pain she has ever experienced. - The pain is diffuse, affecting the ent evie head, and is accompanied by nausea, photophobia, and phonophobia. - The patient reports neck pain and stif fness, which started with back pain and progressed upwards. - She has been taking ibuprofen and napr oxen without relief, consuming 19 tablets over three days. - The patient experiences nausea with ea ting and has been constipated since Saturday, with a history of constipation being typical for her. - She has no head trauma, fever, chills, ear pain or cough. - She has no sick contacts. - She has no history of migraines in the past. Physical Exam General: Cooperative, appears in distress, uncomfortable, well developed, tearful Orientation: Patient oriented x3 Limitations: No limitations Head: NC/AT Ears: Hearing grossly normal bilaterally. No tragus or mastoid tenderness noted. Nose: Normal external nose present Face and sinus: Normal facial exam. No TTP of the sinuses. Eyes: Appearance normal, light sensitivity reported Neck: FROM of the neck. No nuchal rigidity noted. Respiratory: Normal respiratory effort and able to speak in complete sentences. Clear to auscultation bilaterally Cardiovascular: Regular rate and rhythm. Normal S1 and S2 GI: Normal to inspection. Soft to palpation and nontender, no guarding or rebound tenderness noted. Skin: No rashes or lesions noted Neuro: Patient oriented x3. CN II- XII intact. Extremities: Normal to inspection. No ataxia noted. Patient was informed and verbally consented to the use of an ambient scribe for clinic note documentation during this visit. [facility] Medical History PUD (peptic ulcer disease) Recurrent major depression Attention deficit disorder Oppositional defiant disorder Allergic rhinitis Asthma COVID-19 virus infection Surgical History History of repair of ACL H/O tubal ligation History of tonsillectomy H/O neck surgery Family History (Updated 03/03/24 @ 15:33 by Anisha Chong MD) Maternal Grandmother Myocardial infarct Breast cancer Father No problems noted. Social History Household Members: Family Housing: Apartment Alcohol intake: current Alcohol intake frequency: holidays/special occasions only Patient Tobacco Use Status: Never used Tobacco Years Smoked: marijuana e-Cigarette/Vaping Use: Never Used Second Hand Smoke Exposure: No Substance Use Type: Marijuana service: No Current occupational status: unemployed and student Cognitive needs: No Hearing needs: No Vision needs: Yes Review of Systems Const All systems reviewed & are unremarkable except as noted in HPI and below Physical Exam Vital Signs: Last Vital Signs Temp 98.0 F 06/30/25 15:44 Pulse 78 06/30/25 15:44 Resp 15 06/30/25 15:44 BP 90/60 06/30/25 15:44 Pulse Ox 99 06/30/25 15:44 Oxygen Delivery Method Room Air 06/30/25 15:44 BMI result Body Mass Index 26.8 Office Meds ketorolac 30 mg/mL (1 mL) injection solution Performing Provider: Senia Bazzi PA-C Performing Location: [facility] Administered by: Senia Bazzi PA-C on 06/30/25 16:43 Dose Route Admin Location Dispensed Lot Number Expiration Date ND Automatic Equipment Technician 60 mg IM 2 mL [id number] 11/03/25 91255-633-96 [employer]OSUN PHA RMA US Total Dispensed Waste 2 mL 0 % Results AMB Rapid Strep AMB Rapid Strep Negative Last Edit by Gayla Carolina CMA on 06/30/25 16:03 Results Reviewed Results Reviewed: Laboratory Last Values Strep Scn [facility] Negative 06/30/25 16:01 Assessment & Plan Assessment & Plan (1) Headache: Code(s): R51.9 - Headache, unspecified Qualifiers: Headache type: new daily persistent Qualified Code(s): G44.52 - New daily persistent headache (NDPH) Plan Most likely migraine vs viral illness vs bleed vs meningitis Rapid strep in the office was negative plan - Administered Toradol for pain relief. - Recommended hospital visit for CT scan to rule out serious conditions. - called in an expect to [facility] ER - pt will go by private car Orders: Orders AMB Rapid Strep Screen Today Z13.9 - Encounter for screening, unspecified AMB Ketorolac Injection Today R51.9 - Headache, unspecified Coding Level of Care Code Est Pt Level 4 (67620) Diagnoses New daily persistent headache G44.52 Headache type: new daily persistent
[2025-06-30 15:44] VITALS: BP 90/60; PULSE 78; RESP 15; TEMP 36.7; O2SAT 99; BMI 26.8
--- OUTSIDE RECORDS SUMMARY | 2025-06-30 16:18 | XMS_ITS | Clinical Summary ---
Author Organization [facility] Address [address] [facility] [address] [place] [address] Phone Care Team Providers Care Photo Mask Cleaner Name Role Phone Jessica Kelley MD Primary Care Provider [phone] Allergies No known active allergies Medications omeprazole (PRILOSEC) 40 MG capsule Take 1 capsule (40 mg total) by mouth daily. 30 capsule 05/12/2020 Active Active Problems No known active problems Immunizations Immunization Administration Dates Next Due COVID-19 (Pre-08/26) Moderna Vaccine, Bivalent 6mo+ 09/11/2022 COVID-19 (Pre-08/26) Pfizer Vaccine, mRNA, PF 12/25/2021,12/04/2021 Hepatitis B Adult 09/30/2000,03/24/2000,10/24/19 99 Influenza Quadrivalent Preservative Free IM 05/2022,09/10/2022 MMR 01/24/2005,02/11/2001 Tdap 08/04/2018 Varicella 07/08/2007,07/14/2002 Social History Tobacco Use Types Packs/Day Years Used Date Smoking Tobacco: Some Days Smokeless Tobacco: Never Alcohol Use Standard Drinks/Week Comments Yes 0 (1 standard drink = 0.6 oz pur e alcohol) rarely Education Answer Date Recorded Are you interested in more education? Not on bolivar e 03/01/2023 Are you concerned about learning? Not on file 03/01/2023 No 03/01/2023 No 03/01/2023 Digital Access Answer Date Recorded No 03/30/2023 No 03/30/2023 No 03/30/2023 Reliable internet access at home? Not on file 03/30/2023 Device with a working camera? Not on file Comments Unknown Sex and Gender Information Value Date Recorded Sex Assigned at Female 05/12/2020 3:30 PM EDT Legal Sex Female 3:24 PM EDT Gender Identity Female 05/12/2020 3:30 PM EDT Sexual Orientation Straight 05/12/2020 5: 01 PM EDT Last Filed Vital Signs Vital Sign Reading Time Taken Comments Blood Pressure 105/84 05/12/2020 8:55 PM EDT Pulse 79 05/12/2020 8:55 PM EDT Temperature 36.9 C (98.4 F) 05/12/2020 6:07 PM EDT Respiratory Rate 18 05/12/2020 8:55 PM EDT Oxygen Saturation 100% 05/12/2020 8:55 PM EDT Inhaled Oxygen Concentration - - Weight 56.2 kg (124 lb) 05/12/2020 3:25 PM EDT Height 165.1 cm (5' 5 ) 05/12/2020 3:25 PM EDT Body Mass Index 20.63 05/12/2020 3:25 PM EDT Plan of Treatment Health Maintenance Due Date Last Done Comments DEPRESSION SCREENING 2011 SMOKING Hx and SMOKELESS TOB ACCO SCREENING 2012 MENINGOCOCCAL VACCINES (B) ( 2 of 2 - Trumenba SCDM 2-dose series) 06/12/2016 12/13/2015 HEPATITIS C SCREENING 2017 HIV ONE-TIME SCREENING (18-65 YEARS) 2017 PNEUMOCOCCAL VACCINES (0-49 years) (1 of 2 - PCV) 2018 02/11/2001, 09/30/2000, 06/10/2000 PAP SMEAR 2020 COVID-19 VACCINE ( season) 2024 09/11/2022, 12/25/2021, 12/04/2021 Adult Td,Tdap Booster 08/04/2028 08/04/2018 , 06/17/2017, 06/30/2012 HIB VACCINES Completed 02/11/2001, 06/10/2000 HEPATITIS A VACCINES Completed 05/26/2014, 06/30/20 12 HPV VACCINES Completed 12/13/2015, 05/05, 06/30/2012 MENINGOCOCCAL VACCINES (ACWY) Completed 12/13/2015, 06/30/2012 Medical Devices Not on file Insurance [facility] Easy Eye [facility] Push IO [facility] Care Teams Photo Mask Cleaner Relationship Specialty Start Date End Date Jessica Kelley MD [address] [place] [id number] PCP - General Internal Medicine 05/12/20 Additional Source Comments The information contained in this document represents components of the legal health record. It is not the complete legal health record.[facility]
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
== END 2025-06-30 16:51 | disposition home or self-care (01) ==
PROVIDERS: PCP Internal Medicine; Visit Provider Physician Assistant Medical
DX: Z13.9 Encounter for screening, unspecified (principal); R51.9 Headache, unspecified; G44.52 New daily persistent headache (NDPH)

== ENCOUNTER → 2025-06-30 14:55 | Outpatient (BNVA) | payer OTHER, SELFPAY | PROVIDERS: PCP Internal Medicine; Visit Provider Physician Assistant Medical | DX: G44.52 New daily persistent headache (NDPH) (principal); M54.2 Cervicalgia; M53.82 Other specified dorsopathies, cervical region; R11.0 Nausea; K59.00 Constipation, unspecified | CPT/HCPCS: 87880; 96372; 99212; J1885 ==

== ENCOUNTER 2025-06-30 16:52 | Emergency (ER) | payer OTHER, SELFPAY ==
--- NOTE | ~2025-06-30 | CT_ITS ---
CLINICAL HISTORY: severe headache CT HEAD WITHOUT CONTRAST Comparison: None provided Findings: No acute intracranial hemorrhage, extra-axial fluid collection, hydrocephalus or midline shift. No significant atrophy-like change. No significant white matter disease. There is no sinus or mastoid fluid. Visualized orbits: No acute abnormalities. There is no acute fracture. IMPRESSION: 1. No acute intracranial hemorrhage. This document has been electronically signed by: Paula Oneil DO on 06/30/2025 19:30:27
[2025-06-30 17:31] VITALS: BP 102/60; PULSE 71; RESP 16; TEMP 36.9; O2SAT 98; BMI 26.6
--- NOTE | 2025-06-30 17:43 | ED_ITS ---
HPI - Headache General Chief Complaint: Headache Stated Complaint: sent fom pcp for ct, gave shot for pain Time Seen by Provider: 06/30/25 22:50 Source: patient Mode of arrival: ambulatory Limitations: no limitations History of Present Illness ED Provider: Inocencio CAI HPI Narrative: The patient is a 24-year-old female presenting to the ED reporting since Saturday she has been experiencing multiple complaints including a headache which she describes as the worst headache of her life, as well as bilateral lower back/flank pain, and menstruation which is lasting longer than normal. The patient reports she went out to a local club Saturday with friends, denies any alcohol intake, denies recreational drug use. The patient reports since Saturday night she has been experiencing the severe headache and bilateral low back pain. The patient denies associated fever/chills, nausea, vomiting, diarrhea, chest pain, shortness of breath, focal neurological deficit, recent sick contacts, or recent trauma. Patient denies history of migraines or frequent headaches. Patient also reports she started her menstruation approximately 9 days ago, her periods usually last approximately 4-5 days and then resolved, however patient has been experiencing 4 days of persistent vaginal spotting, although she does report spotting/flow is diminishing each day. Patient denies recent sexual activity, denies irregular vaginal discharge. The patient reports history of frequent UTIs but reports these often present with typical symptoms including dysuria and urgency, currently denies these symptoms. The patient was seen by her PCP for her complaints, given 60 mg IM Toradol, and sent to the ED for CT. Related Data Previous Rx's ?Medication ?Instructions ?Recorded naproxen 500 mg tablet 500 mg PO BID PRN pain 30 da ys #60 12/10/24 tabs Allergies Allergy/AdvReac Type Severity Reaction Status Date / Time nut - unspecified (nut) Allergy Unknown UNKNOWN Verified 06/30/25 17:34 FRUIT Allergy Unknown UNKNOWN Uncoded 06/30/25 15:44 fruits Allergy Unknown hives Uncoded 06/30/25 15:44 Review of Systems 2 Review of Systems: Yes all other systems are reviewed and are negative PMFSH Past Medical History Attestation statement: The following information was validated with the patient. Medical History PUD (peptic ulcer disease) Recurrent major depression Attention deficit disorder Oppositional defiant disorder Allergic rhinitis Asthma COVID-19 virus infection Surgical History History of repair of ACL H/O tubal ligation History of tonsillectomy H/O neck surgery Family History Family History (Updated 03/03/24 @ 15:33 by Anisha Chong MD) Maternal Grandmother Myocardial infarct Breast cancer Father No problems noted. Social History Social History Household Members: Family Housing: Apartment Alcohol intake: current Alcohol intake frequency: holidays/special occasions only Patient Tobacco Use Status: Never used Tobacco Years Smoked: marijuana e-Cigarette/Vaping Use: Never Used Second Hand Smoke Exposure: No Substance Use Type: Marijuana Advance Directives: No Advance Directives Information Provided: No Do you have a plan to hurt others: No Plan service: No Current occupational status: unemployed and student Cognitive needs: No Hearing needs: No Vision needs: Yes Physical Exam 2 Vital Signs: Vital Signs: Last Vital Signs Temp 0 F L 07/01/25 01:00 Pulse 0 L 07/01/25 01:00 Resp 0 L 07/01/25 01:00 BP 0/0 L 07/01/25 01:00 Pulse Ox 0 L 07/01/25 01:00 O2 Del Method Room Air 06/30/25 17:31 BMI result Body Mass Index 26.6 CONSTITUTIONAL: The patient appears non-toxic, well nourished and in no acute distress. Patient is sleeping comfortably upon initiation of the exam, wakes easily with verbal stimuli. Vital signs as documented. HEAD: Atraumatic, normocephalic. EYES: EOMs intact, pupils equal round and reactive to light and accommodation, conjunctiva clear, no exudate. ENT: Nares patent, no discharge. Airway patent, no audible stridor, visible mucosa is pink and moist without noted lesions. NECK: Trachea is midline, no obvious masses or gross abnormalities. Full nonpainful range of motion, able to touch chin to chest, no meningismus. CHEST: Symmetric movement, normal appearance. LUNGS: LS present and CTAB, no w/r/r. Non-labored work of breathing. CARDIAC: Regular Rhythm, S1/S2 appreciated, no murmurs, rubs or gallops. ABDOMEN: Abdomen soft and non-tender x4 quadrants, no palpable masses or organomegaly. Negative CVAT bilaterally. : Deferred. EXTREMITIES: Normal tone, moves all extremities spontaneously without reported pain. No obvious acute injury or deformity noted. NEURO: Alert and oriented x3, CN II-XII appear grossly intact. Cerebellar Functioning grossly intact. No obvious sensory or motor deficits. Speech clear and appropriate. PSYCH: normal affect, appropriate eye contact, fluid speech, with appropriate response to questioning. No reported suicidality or homicidality. SKIN: Warm, dry, color appropriate, normal turgor. No rashes noted. Course Course Course Narrative: This is an RME: Additional HPI, ROS, PE not included below will be deferred to primary provider. RME assessment and note performed by: Senia Dickens PA-C This is a 24-year-old female, with no known medical problems, who presents emergency department with concerns of headache for the last 3 days. Patient reports that the headache is 1 of the worst headache she has had in her life. She was seen at the [facility] prior to her arrival and was sent to the emergency room for further evaluation. She received 60 milligrams of IM Toradol. Denies history of migraines. She is neurologically intact. No recent head trauma. She is not on anticoagulation. Plan: Labs, CT head, further ER eval needed Medical Decision Making Medical Decision Making MDM Narrative: 11:39 PM 06/30/2025 (Nissa CAI): The patient is a 24-year-old female presenting to the ED for evaluation of 3 days of headache described as the worst headache of her life, symptoms started shortly after going to a local club with friends, however denies any recreational drug use or alcohol intake, denies any recent trauma. Patient went to her PCP office where they gave her 60 mg of IM Toradol and sent the patient to the ED for CT imaging. The patient is also reporting bilateral lower back/flank pain with a history of frequent UTIs but without associated dysuria, urgency, or other urinary symptoms. The patient is also reporting vaginal spotting which is ongoing greater than her normal duration of menstruation. The patient's exam is benign, patient was sleeping comfortably at initiation of interview, appears in no acute distress upon waking easily, there was no focal neurological deficit or meningismus. The patient's laboratory evaluation shows no leukocytosis, anemia, electrolyte abnormality or ELENO, there are no LFT abnormalities. Beta hCG is negative. Viral swabs are negative. The patient was sent for CT head during triage process, CT head shows no acute intracranial pathology. The patient will be fluid hydrated to obtain urinalysis. Given the patient's reassuring workup, no evidence of discomfort on exam, and negative CT, there is no concern for acute emergent process causing the patient's headache. Will plan to discharge pending unremarkable urinalysis. 12:47 AM 07/01/2025 (Nissa CAI): Patient's urinalysis is negative for infection. 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 Patient appears clinically stable for discharge. Admission/Observation Consideration of admission/observation: Escalation of care including admission/observation considered Lab Data MDM Lab Attestation statement: I reviewed the patient's lab results. 06/30/25 20:04 06/30/25 20:04 Labs: Lab Results 06/30/25 06/30/25 Range/Units 20:04 23:45 WBC 5.0 (4.8-10.8) X10*3/uL RBC 4.38 (4.20-5.50) X10*6/uL Hgb 14.0 (12.0-16.0) g/dl Hct 41.5 (37.0-47.0) % MCV 94.7 (80.0-98.0) fL MCH 32.0 (27.0-33.0) pg MCHC 33.7 (31.0-35.0) g/dl RDW 12.0 (11.0-16.0) % Plt Count 117 L D (160-400) X10*3/uL MPV 13.2 H (9.4-12.3) fL Immature Gran % (Auto) Cancelled Neut % (Auto) Cancelled Lymph % (Auto) Cancelled [place] % (Auto) Cancelled Eos % (Auto) Cancelled Baso % (Auto) Cancelled Lymph # (Auto) Cancelled [place] # (Auto) Cancelled Eos # (Auto) Cancelled Baso # (Auto) Cancelled Abs Immat Gran (auto) Cancelled Absolute Neuts (auto) Cancelled Absolute Nucleated RBC 0.000 (0.0-0.012) X10*3/uL Nucleated RBC % (auto) 0.0 (0.0-0.2) /100WBC Neutrophils % (Manual) 30 L (45-73) % Band Neutrophils % 6 H (3-5) % Lymphocytes % (Manual) 37 (20-40) % Atypical Lymphs % (Man) 9 H (0-6) % Monocytes % (Manual) 9 (2-11) % Eosinophils % (Manual) 7 H (0-4) % Basophils % (Manual) 2 (0-2) % Abs Neuts (Manual) 1.8 L (2.0-8.3) X10*3/uL Lymphocytes # (Manual) 1.9 (1.2-4.9) X10*3/uL Atyp Lymphs # (Manual) 0.5 x10*3/uL Monocytes # (Manual) 0.5 (0.1-1.2) X10*3/uL Eosinophils # (Manual) 0.4 (0.0-0.4) X10*3/uL Basophils # (Manual) 0.1 (0.0-0.2) X10*3/uL Platelet Estimate NORMAL (NORMAL) Plt Morphology Comment NORMAL RBC Morphology NOTED Macrocytosis 1+ (5-14) /OIF Smear Tech's Comments MANUAL DIFF Sodium 140 (135-145) mmol/L Potassium 3.8 (3.3-5.1) mmol/L Chloride 106 (96-108) mmol/L Carbon Dioxide 25 (22-29) mmol/L Anion Gap 13 (12-20) BUN 12 (9-16) mg/dL Creatinine 0.80 (0.5-1.4) mg/dL Estim Creat Clear Calc 107.2 Estimated GFR > 60 Random Glucose 94 (60-115) mg/dL Calcium 9.1 (8.4-10.2) mg/dL Magnesium 2.2 (1.6-2.6) mg/dL Total Bilirubin 0.3 (0.0-1.0) mg/dL Direct Bilirubin 0.1 (0.0-0.5) mg/dL AST 20 (5-31) U/L ALT 29 (0-31) U/L Alkaline Phosphatase 81 (39-117) U/L Total Protein 7.2 (6.5-8.0) g/dL Albumin 4.2 (3.5-5.0) g/dL Beta HCG, Quant < 2 mIU/mL Urine Color Yellow Urine Appearance Clear Urine pH 6.5 (5.0-9.0) Ur Specific [place] 1.025 (1.005-1.025) Urine Protein Negative (Neg-Trace) mg/dL Urine Glucose (UA) Negative (Negative) mg/dL Urine Ketones Trace (Negative) mg/dL Urine Blood Negative (Negative) Urine Nitrite Negative (Negative) Ur Leukocyte Esterase Negative (Negative) COVID-19 (RAFAL) Negative (Negative) COVID-19 Clin Com See Note Influenza Type A (DIDIER) Negative (Negative) Influenza Type B (DIDIER) Negative (Negative) Influenza A & B Note See Note Radiology Impression Discussion of test interpretation with radiology: I have reviewed the radiologist's reading. Radiologist Impression: CLINICAL HISTORY: severe headache CT HEAD WITHOUT CONTRAST Comparison: None provided Findings: No acute intracranial hemorrhage, extra-axial fluid collection, hydrocephalus or midline shift. No significant atrophy-like change. No significant white matter disease. There is no sinus or mastoid fluid. Visualized orbits: No acute abnormalities. There is no acute fracture. IMPRESSION: 1. No acute intracranial hemorrhage. This document has been electronically signed by: Paula Oneil DO on 06/30/2025 19:30:27 External Record Review External record reviewed: Outpatient record Tests considered The following testing was considered but not selected: Lumbar Puncture Prescription Management I considered prescription management with: Pain Medication Discharge Plan Discharge Clinical Impression: Headache Patient Disposition: Home, Self-Care Instructions: Acute Headache (ED) Additional Instructions: Thank you for choosing [facility]'s Emergency Department for your care today. Thankfully your laboratory evaluation, urinalysis, CT head, and exam today are reassuring. At this time there is no indication for admission to the hospital or continued ED observation, and it is safe to discharge you home. The exact cause of your headache is not entirely clear, however given your reassuring workup and exam it is safe to continue investigating your symptoms with the your primary care provider. You may take alternating (staggered) doses of ibuprofen 600mg and Tylenol 1000mg every 4 hours as needed for any additional pain. Please stay well hydrated and get plenty of rest. Please follow up with your primary care physician for re-evaluation, additional management of your symptoms, and continued preventative care. If you do not have a primary care physician, please call the [facility] at [phone] to establish a new primary care physician. While waiting to establish your new primary care physician, you can call our Walk-in Care [facility] at [phone] for non-emergency needs. Please return to the emergency department if you develop a severe or sudden change in your symptoms, a fever over 100.4 that does not improve with Tylenol or Ibuprofen, recurrent vomiting, or any other new or worsening symptoms or concerns. Prescriptions: No Action naproxen 500 mg tablet 500 mg PO BID PRN (Reason: pain) 30 Days Qty: 60 0RF Referrals: Anisha Alicea MD [Primary Care Provider, Internal Medicine] Clinical Impression: Headache Interventions: ED Discharge Assessment Last Done: 07/01/25 01:00 Discharge Date/Time: 07/01/25 01:01 Print Language: Spanish
--- NOTE | 2025-06-30 19:59 | PC.NURSE ---
Patient was called at 18:07 with no response. Registration notified this RN that the patient returned and was in her car in the parking lot for the past ~2 hours.
[2025-06-30 20:16] LABS: Hematocrit 41.5 % (37.0-47.0); Hemoglobin 14.0 g/dl (12.0-16.0); Mean Corpuscular HGB Conc 33.7 g/dl (31.0-35.0); Mean Corpuscular Hemoglobin 32.0 pg (27.0-33.0); Mean Corpuscular Volume 94.7 fL (80.0-98.0); NRBC Abs Auto 0.000 X10*3/uL (0.0-0.012); NRBC Pct Auto 0.0 /100WBC (0.0-0.2); Platelet Count 117 X10*3/uL (160-400); Red Blood Count 4.38 X10*6/uL (4.20-5.50); White Blood Count 5.0 X10*3/uL (4.8-10.8)
[2025-06-30 20:26] LABS: Alanine Aminotransferase 29 U/L (0-31); Albumin Level 4.2 g/dL (3.5-5.0); Alkaline Phosphatase 81 U/L (39-117); Anion Gap 13 (12-20); Aspartate Amino Transferase 20 U/L (5-31); Blood Urea Nitrogen 12 mg/dL (9-16); Calcium 9.1 mg/dL (8.4-10.2); Carbon Dioxide 25 mmol/L (22-29); Chloride 106 mmol/L (96-108); Creatinine Clr Calc Pharmacy 107.2; Estimated Glomerular Filt Rate > 60; Magnesium 2.2 mg/dL (1.6-2.6); Potassium 3.8 mmol/L (3.3-5.1); Sodium 140 mmol/L (135-145); Total Protein 7.2 g/dL (6.5-8.0)
[2025-06-30 20:27] LABS: COVID-19 Test Negative (Negative); IDNOW Serial# 55D5AD1C; IDNOW Serial# 58CA691E; Influenza B2 Negative (Negative)
[2025-06-30 20:44] LABS: Atypical Lymph Absolute Manual 0.5 x10*3/uL; Atypical Lymphs Percent Manual 9 % (0-6); Band Neutrophils Percent 6 % (3-5); Basophils Abs Manual 0.1 X10*3/uL (0.0-0.2); Basophils Percent Manual 2 % (0-2); Eosinophils Absolute Manual 0.4 X10*3/uL (0.0-0.4); Eosinophils Percent Manual 7 % (0-4); Lymphocytes Absolute Manual 1.9 X10*3/uL (1.2-4.9); Lymphocytes Percent Manual 37 % (20-40); Monocytes Absolute Manual 0.5 X10*3/uL (0.1-1.2); Monocytes Percent Manual 9 % (2-11); Neutrophils Absolute Manual 1.8 X10*3/uL (2.0-8.3); Neutrophils Percent Manual 30 % (45-73)
[2025-06-30 20:47] LABS: Macrocytosis 1+ (5-14) /OIF; RBC Morphology NOTED
--- NOTE | 2025-06-30 22:08 | PC.NURSE ---
Patient keeps leaving ED waiting room to go to car, then comes back. Patient has been called multiple times with no answer due to repeatedly leaving. Encouraged (again) to avoid leaving waiting room without notifying staff as this causes delays in receiving treatments.
[2025-07-01 00:12] LABS: Appearance Urine Clear; Glucose Urine UA Negative (Negative); PH 6.5 (5.0-9.0); Specific Gravity - Urine 1.025 (1.005-1.025)
[2025-07-01 01:00] VITALS: BP 0/0; PULSE 0; RESP 0; TEMP -17.7; TEMP 0; O2SAT 0
== END 2025-07-01 01:01 | disposition home or self-care (01) ==
PROVIDERS: Physician Assistant; Physician Assistant Medical; Emergency Provider Emergency Medicine; PCP Internal Medicine
DX: R51.9 Headache, unspecified (principal); M54.50 Low back pain, unspecified; N89.8 Other specified noninflammatory disorders of vagina; Z03.818 Encounter for observation for suspected exposure to other biological agents ruled out
CPT/HCPCS: 36415; 70450; 80048; 80076; 81003; 83735; 84702; 85007; 85027; 87502; 87635; 99282; 99284

== ENCOUNTER → 2025-06-30 17:39 | Outpatient (BNV) | payer OTHER, SELFPAY | PROVIDERS: PCP Internal Medicine; Visit Provider Radiology Diagnostic Radiology | DX: R51.9 Headache, unspecified (principal) | CPT/HCPCS: 70450 ==

== ENCOUNTER 2025-10-06 13:05 | Outpatient (AMB) | payer OTHER, SELFPAY ==
--- NOTE | 2025-10-06 13:13 | AM.OFFVISNUR ---
Intake Visit Reasons: PPD plant Allergies nut - unspecified (nut) Allergy (Unknown, Verified 06/30/25 17:34) UNKNOWN FRUIT Allergy (Unknown, Uncoded 06/30/25 15:44) UNKNOWN fruits Allergy (Unknown, Uncoded 06/30/25 15:44) hives Office Meds tuberculin PPD 5 tub. unit/0.1 mL intradermal injection solution Performing Provider: Anisha Chong MD Performing [facility] [place] [facility] Administered by: Graciela Ricardo LPN on 10/06/25 13:10 Dose Route Admin Location Dispensed Lot Number Expiration Date [facility] Supply Technician 0.1 mL intradermal left forearm 0.1 mL [id number] 01/01/27 08194-821-36 [employer] Total Dispensed Waste 0.1 mL 0 % Assessment & Plan Assessment & Plan Orders: Orders AMB PPD Planted Today Z11.1 - Encounter for screening for respiratory tuberculosis Coding
--- OUTSIDE RECORDS SUMMARY | 2025-10-06 15:35 | XMS_ITS | Clinical Summary ---
Author Organization [facility] Address [address] [place] [address] Care Team Providers Care Metalworking Instructor Name Role Phone Unavailable Primary Care Provider [...] screen; COMMENT: Cannabis and benzos done at [facility] in [place] May 2020 Family History Medical History Relation [...] Comments Cervical Cancer Screening: Pap Smear 2020 Depression Screening 11/04/2024 COVID-19 Vaccine (2024- season) 2025 Influenza Vaccine (#1) 2025 09/01/2018, 2016 DTaP,Tdap,and Td Vaccines (8 - Td or Tdap) 08/04/2028 08/04/2018, 06/30/2012, 01/24/2005, Additional history exists RSV Immunization Adult Patients (1 - 1-dose 75+ series) 2074 Hepatitis B Vaccines Completed 09/30/2000, 03/24/2000, 1999 [...]
--- OUTSIDE RECORDS SUMMARY | 2025-10-06 15:35 | XMS_ITS | Clinical Summary ---
Author Organization [facility] Address [address] [place] [address] Phone Care Team Providers Care Dowel Sticker Operator Name Role Phone Jessica Kelley MD Primary Care Provider [phone] Allergies No known active allergies Medications omeprazole [...] HEPATITIS C SCREENING 2017 HIV ONE-TIME SCREENING (18-6 5 YEARS) 2017 PNEUMOCOCCAL VACCINES (0-49 years) (1 of 2 - PCV) 2018 02/11/2001, 09/30/2000, 06/10/2000 PAP SMEAR 2020 INFLUENZA VACCINE (#1) 2025 , 09/10/2022, 09/01/2018, Additional history exists COVID-19 VACCINE (2024-2 6 season) 2025 09/11/2022, 12/25/2021, 12/04/2021 Adult Td,Tdap Booster 08/04/2028 08/04/2018 , 06/17/2017, 06/30/2012 HIB VACCINES Completed 02/11/2001, 06/10/2000 HEPATITIS A VACCINES Completed 05/26/2014, 06/30/20 12 HPV VACCINES Completed 12/13/2015, 05/05, 06/30/2012 MENINGOCOCCAL VACCINES (ACWY) Completed 12/13/2015, 06/30/2012 Medical Devices Not on file Insurance [facility] [place] [id number] Care Teams Dowel Sticker Operator Relationship Specialty Start Date End Date Jessica Kelley MD [address] [place] [id number] PCP - General Internal Medicine 05/12/20 Additional Source Comments The information contained in this document represents components of the legal health record. It is not the complete legal health record.[facility]
== END 2025-10-06 13:13 | disposition home or self-care (01) ==
LOC: HO.HMCH 13:05
PROVIDERS: PCP Internal Medicine; Visit Provider Internal Medicine
DX: Z11.1 Encounter for screening for respiratory tuberculosis (principal)

== ENCOUNTER → 2025-10-06 13:05 | Outpatient (BNVA) | payer OTHER, SELFPAY | PROVIDERS: PCP Internal Medicine; Visit Provider Internal Medicine | DX: Z11.1 Encounter for screening for respiratory tuberculosis (principal) | CPT/HCPCS: 86580 ==